=== PATIENT | female | born 1955 | race Caucasian/White ===

== ENCOUNTER 2016-08-17 20:45 | Emergency (ER) | payer OTHER ==
[~2016-08-17] VITALS: Ht 157.5 cm; Wt 2.3 kg
[~2016-08-17 20:45] MED LIST: PRILOSEC20 MG PO
[2016-08-17] MEDS ORDERED: MOBIC15 MG PO (21:24)
[2016-08-17] MEDS ORDERED: FENOFIBRATE160 MG PO (21:25)
[2016-12-23] MEDS ORDERED: TESSALON PERLE100 M1 PO (10:31)
[2016-12-23] MEDS ORDERED: PREDNISONE10 MG PO (10:32)
[2016-12-23] MEDS ORDERED: SYNTHROID100 MCG PO (10:33)
== END 2016-08-17 22:25 | disposition short-term general hospital (02) ==
LOC: ER 20:45
DX: S89.91XA Unspecified injury of right lower leg, initial encounter (principal); W22.8XXA Striking against or struck by other objects, initial encounter; Z79.899 Other long term (current) drug therapy
CPT/HCPCS: J1885

== ENCOUNTER → 2016-10-08 | Outpatient (CLI) | payer OTHER ==
[~2016-10-08] MED LIST changes: +FENOFIBRATE160 MG PO; +MOBIC15 MG PO; +PREDNISONE10 MG PO; +SYNTHROID100 MCG PO; +TESSALON PERLE100 M1 PO
== END | disposition short-term general hospital (02) ==
LOC: CLORTH 03:52
DX: M23.51 Chronic instability of knee, right knee (principal); M23.203 Derangement of unspecified medial meniscus due to old tear or injury, right knee; M23.300 Other meniscus derangements, unspecified lateral meniscus, right knee; M17.11 Unilateral primary osteoarthritis, right knee